=== PATIENT | male | born 1975 | race Caucasian/White ===

== ENCOUNTER 2022-12-14 21:30 | Inpatient (IN) | payer OTHER ==
[2022-12-14 22:33] VITALS: BMI 23.0
[2022-12-14] MEDS ORDERED: NALOXONE HCL 0.4 MG/ML VIAL IM PRN (22:45)
[2022-12-14] MEDS ORDERED: MAG HYDROX/AL HYDROX/SIMETH 30 ML UNIT-DOSE CUP PO PRN (22:45)
[2022-12-14] MEDS ORDERED: DICYCLOMINE HCL 10 MG CAPSULE PO PRN (22:45)
[2022-12-14] MEDS ORDERED: IBUPROFEN 600 MG TABLET (FP) PO PRN (22:45)
[2022-12-14] MEDS ORDERED: ACETAMINOPHEN 325 MG TABLET (FP) PO PRN (22:45)
[2022-12-14] MEDS ORDERED: IBUPROFEN 400 MG TABLET (FP) PO PRN (22:45)
[2022-12-14] MEDS ORDERED: NALOXONE HCL (KLOXXADO) 8 MG SPRAY NS PRN (22:45)
[2022-12-14] MEDS ORDERED: LOPERAMIDE HCL 2 MG CAPSULE PO PRN (22:45)
[2022-12-14] MEDS ORDERED: BENZOCAINE/MENTHOL (CHLORASEPTIC ) LOZENGE MM PRN (22:45)
[2022-12-14] MEDS ORDERED: ONDANSETRON *ODT* 4 MG TABLET SL PRN (22:45)
[2022-12-14] MEDS ORDERED: BENZONATATE 200 MG CAPSULE PO PRN (22:45)
[2022-12-14] MEDS ORDERED: guaiFENesin 600 MG TABLET.ER (FP) PO PRN (22:45)
[2022-12-14] MEDS ORDERED: MAGNESIUM HYDROX 2400MG/30ML ORAL SUSPENSION 30 ML CUP PO PRN (22:45)
[2022-12-14] MEDS ORDERED: BISMUTH SUBSALICYLATE 524 MG/30 ML PO PRN (22:45)
[2022-12-14] MEDS ORDERED: POLYETHYLENE GLYCOL (HEALTHYLAX) 3350 17 GM PACKET PO PRN (22:45)
[2022-12-14] MEDS ORDERED: LORazepam 2 MG/ML SDV VIAL IM ONE (22:46)
[2022-12-15] MEDS: chlordiazePOXIDE HCL 25 MG CAPSULE PO SCH ×4 (05:25→22:11)
[2022-12-15] MEDS: chlordiazePOXIDE HCL 25 MG CAPSULE PO PRN ×2 (07:38→12:25)
[2022-12-15] MEDS: PRENATAL VITAMINS W/ FOLIC ACID TABLET (FP) PO SCH (10:13)
[2022-12-15] MEDS: PANTOPRAZOLE 20 MG TABLET PO SCH (10:14)
[2022-12-15 11:49] LABS: POTASSIUM 3.8 mmol/L (3.5-5.1)
[2022-12-15 11:53] LABS: HEMOGLOBIN 14.1 GM/dL (11.7-16.9); MCH 32.2 pg (25.7-33.7); MCHC 35.2 g/dl (32.0-35.9); MEAN CELL VOLUME 91.6 fl (80-96); PLATELET COUNT 243 10^3/uL (134-434); RBC 4.37 M/mm3 (4.00-5.60); RDW 14.6 % (11.9-15.9); WHITE BLOOD COUNT 3.6 K/mm3 (4.0-10.0)
[2022-12-15 11:57] LABS: ALBUMIN 3.4 g/dl (3.4-5.0); BLOOD UREA NITROGEN 6.9 mg/dL (7-18); CALCIUM 8.4 mg/dL (8.5-10.1)
[2022-12-15 11:58] LABS: BILIRUBIN,TOTAL 0.6 mg/dL (0.2-1); TOT PROT 6.9 g/dl (6.4-8.2)
[2022-12-15 12:00] LABS: CREATININE 0.7 mg/dL (0.55-1.3)
[2022-12-15 14:29] LABS: URINE APPEARANCE CLEAR; URINE BILIRUBIN NEGATIVE (NEGATIVE); URINE COLOR DK YELLOW; URINE GLUCOSE (UA) NEGATIVE (NEGATIVE); URINE KETONE NEGATIVE (NEGATIVE); URINE LEUK ESTERASE NEGATIVE (NEGATIVE); URINE NITRITE NEGATIVE (NEGATIVE); URINE PROTEIN TRACE (NEGATIVE); URINE UROBILINOGEN 0.2 mg/dL (0.2-1.0)
[2022-12-15] MEDS: MELATONIN 5 MG TABLETS PO SCH (22:10)
[2022-12-15] MEDS: THIAMINE HCL 100 MG TABLET (FP) PO SCH (22:10)
[2022-12-16] MEDS: chlordiazePOXIDE HCL 25 MG CAPSULE PO SCH ×4 (06:59→22:07)
[2022-12-16] MEDS: chlordiazePOXIDE HCL 25 MG CAPSULE PO PRN (10:55)
[2022-12-16] MEDS: PANTOPRAZOLE 20 MG TABLET PO SCH (10:55)
[2022-12-16] MEDS: PRENATAL VITAMINS W/ FOLIC ACID TABLET (FP) PO SCH (10:55)
[2022-12-16] MEDS: MELATONIN 5 MG TABLETS PO SCH (22:07)
[2022-12-16] MEDS: THIAMINE HCL 100 MG TABLET (FP) PO SCH (22:07)
[2022-12-16] MEDS: hydrOXYzine PAMOATE 25 MG CAPSULE (FP) PO PRN (22:07)
[2022-12-17] MEDS ORDERED: chlordiazePOXIDE HCL 10 MG CAPSULE PO PRN
[2022-12-17] MEDS: chlordiazePOXIDE HCL 10 MG CAPSULE PO SCH ×4 (05:54→22:13)
[2022-12-17] MEDS: PANTOPRAZOLE 20 MG TABLET PO SCH (10:41)
[2022-12-17] MEDS: PRENATAL VITAMINS W/ FOLIC ACID TABLET (FP) PO SCH (10:41)
[2022-12-17] MEDS: THIAMINE HCL 100 MG TABLET (FP) PO SCH (22:14)
[2022-12-17] MEDS: MELATONIN 5 MG TABLETS PO SCH (22:14)
[2022-12-18] MEDS: chlordiazePOXIDE HCL 10 MG CAPSULE PO SCH ×2 (05:51→17:29)
[2022-12-18] MEDS: PRENATAL VITAMINS W/ FOLIC ACID TABLET (FP) PO SCH (10:24)
[2022-12-18] MEDS: PANTOPRAZOLE 20 MG TABLET PO SCH (10:24)
[2022-12-18] MEDS: hydrOXYzine PAMOATE 25 MG CAPSULE (FP) PO PRN ×2 (13:52→22:11)
[2022-12-18] MEDS: MELATONIN 5 MG TABLETS PO SCH (22:10)
[2022-12-18] MEDS: THIAMINE HCL 100 MG TABLET (FP) PO SCH (22:10)
[2022-12-19] MEDS: chlordiazePOXIDE HCL 10 MG CAPSULE PO ONE ×2 (05:57→06:17)
[2022-12-19 06:46] VITALS: RESP 16
[2022-12-19 08:43] VITALS: BP 112/68; PULSE 82; TEMP 98.2
[2022-12-19] MEDS: hydrOXYzine PAMOATE 25 MG CAPSULE (FP) PO PRN (09:53)
[2022-12-19] MEDS: PANTOPRAZOLE 20 MG TABLET PO SCH (09:54)
[2022-12-19] MEDS: PRENATAL VITAMINS W/ FOLIC ACID TABLET (FP) PO SCH (09:54)
== END 2022-12-19 11:21 | disposition other institution (70) | DRG 775 ==
LOC: YASAS 21:30 → Y3N 12-15 06:27
PROVIDERS: ADMIT Allergy & Immunology; ATTEND Surgery
PROC: HZ2ZZZZ Detoxification Services for Substance Abuse Treatment (ICD-10-PCS; principal; 2022-12-15)
DX: F10.230 Alcohol dependence with withdrawal, uncomplicated (principal); F19.24 Other psychoactive substance dependence with psychoactive substance-induced mood disorder; K21.9 Gastro-esophageal reflux disease without esophagitis; R74.01 Elevation of levels of liver transaminase levels; R74.8 Abnormal levels of other serum enzymes; Z87.891 Personal history of nicotine dependence; Z28.310 Unvaccinated for COVID-19; Z28.9 Immunization not carried out for unspecified reason
CPT/HCPCS: 36415; 80053; 81003; 85027; 86780; C9803-CS; U0003; U0005

== ENCOUNTER 2022-12-19 11:25 | Inpatient (IN) | payer OTHER ==
[2022-12-19] MEDS ORDERED: NALOXONE HCL (KLOXXADO) 8 MG SPRAY NS PRN (14:13)
[2022-12-19] MEDS ORDERED: IBUPROFEN 400 MG TABLET (FP) PO PRN (14:13)
[2022-12-19] MEDS ORDERED: BENZONATATE 200 MG CAPSULE PO PRN (14:13)
[2022-12-19] MEDS ORDERED: COLLOIDAL OATMEAL 1 BAR EACH TP PRN (14:13)
[2022-12-19] MEDS ORDERED: NALOXONE HCL 0.4 MG/ML VIAL IVPUSH PRN (14:13)
[2022-12-19] MEDS ORDERED: BENZOCAINE/MENTHOL (CHLORASEPTIC ) LOZENGE MM PRN (14:13)
[2022-12-19] MEDS ORDERED: MAGNESIUM HYDROX 2400MG/30ML ORAL SUSPENSION 30 ML CUP PO PRN (14:13)
[2022-12-19] MEDS ORDERED: NICOTINE 10 MG CARTRIDGE (INHALER) IH PRN (14:13)
[2022-12-19] MEDS ORDERED: AMMONIUM LACTATE 12% LOTION 225 GM BOTTLE TP PRN (14:13)
[2022-12-19] MEDS ORDERED: IBUPROFEN 600 MG TABLET (FP) PO PRN (14:13)
[2022-12-19] MEDS ORDERED: MAG HYDROX/AL HYDROX/SIMETH 30 ML UNIT-DOSE CUP PO PRN (14:13)
[2022-12-19] MEDS ORDERED: guaiFENesin 600 MG TABLET.ER (FP) PO PRN (14:13)
[2022-12-19] MEDS ORDERED: POLYETHYLENE GLYCOL (HEALTHYLAX) 3350 17 GM PACKET PO PRN (14:13)
[2022-12-19] MEDS ORDERED: ACETAMINOPHEN 325 MG TABLET (FP) PO PRN (14:13)
[2022-12-19] MEDS ORDERED: LOPERAMIDE HCL 2 MG CAPSULE PO PRN (14:13)
[2022-12-19] MEDS: MELATONIN 5 MG TABLETS PO SCH (21:27)
[2022-12-19] MEDS: THIAMINE HCL 100 MG TABLET (FP) PO SCH (21:27)
[2022-12-20] MEDS: PRENATAL VITAMINS W/ FOLIC ACID TABLET (FP) PO SCH (10:27)
[2022-12-20 11:44] LABS: INR 0.97 (0.83-1.09); PROTHROMBIN TIME (PATIENT) 11.2 SEC (9.7-13.0)
[2022-12-20] MEDS: hydrOXYzine PAMOATE 25 MG CAPSULE (FP) PO PRN (20:41)
[2022-12-20] MEDS: MELATONIN 5 MG TABLETS PO SCH (21:03)
[2022-12-20] MEDS: THIAMINE HCL 100 MG TABLET (FP) PO SCH (21:03)
[2022-12-20] MEDS: METHOCARBAMOL 500 MG TABLET PO PRN (22:48)
[2022-12-21] MEDS ORDERED: HYDROCORTISONE 1% TOPICAL CREAM 30 GM TUBE TP PRN (08:54)
[2022-12-21] MEDS: PRENATAL VITAMINS W/ FOLIC ACID TABLET (FP) PO SCH (10:29)
[2022-12-21] MEDS: MELATONIN 5 MG TABLETS PO SCH (21:02)
[2022-12-21] MEDS: hydrOXYzine PAMOATE 25 MG CAPSULE (FP) PO PRN (21:02)
[2022-12-21] MEDS: THIAMINE HCL 100 MG TABLET (FP) PO SCH (21:02)
[2022-12-21] MEDS: METHOCARBAMOL 500 MG TABLET PO PRN (21:02)
[2022-12-22] MEDS: PRENATAL VITAMINS W/ FOLIC ACID TABLET (FP) PO SCH (09:45)
[2022-12-22] MEDS: THIAMINE HCL 100 MG TABLET (FP) PO SCH (21:04)
[2022-12-22] MEDS: METHOCARBAMOL 500 MG TABLET PO PRN (21:04)
[2022-12-22] MEDS: hydrOXYzine PAMOATE 25 MG CAPSULE (FP) PO PRN (21:04)
[2022-12-22] MEDS: MELATONIN 5 MG TABLETS PO SCH (21:04)
[2022-12-23] MEDS: PRENATAL VITAMINS W/ FOLIC ACID TABLET (FP) PO SCH (10:02)
[2022-12-23] MEDS: MELATONIN 5 MG TABLETS PO SCH (21:05)
[2022-12-23] MEDS: THIAMINE HCL 100 MG TABLET (FP) PO SCH (21:05)
[2022-12-23] MEDS: hydrOXYzine PAMOATE 25 MG CAPSULE (FP) PO PRN (21:06)
[2022-12-24] MEDS: PRENATAL VITAMINS W/ FOLIC ACID TABLET (FP) PO SCH (10:05)
[2022-12-24] MEDS: THIAMINE HCL 100 MG TABLET (FP) PO SCH (21:25)
[2022-12-24] MEDS: METHOCARBAMOL 500 MG TABLET PO PRN (21:25)
[2022-12-24] MEDS: MELATONIN 5 MG TABLETS PO SCH (21:25)
[2022-12-24] MEDS: hydrOXYzine PAMOATE 25 MG CAPSULE (FP) PO PRN (21:25)
[2022-12-25] MEDS: PRENATAL VITAMINS W/ FOLIC ACID TABLET (FP) PO SCH (10:23)
[2022-12-25] MEDS: hydrOXYzine PAMOATE 50 MG CAPSULE (FP) PO PRN ×3 (12:17→21:32)
[2022-12-25] MEDS: SUVOREXANT 10 MG TABLET PO PRN (21:32)
[2022-12-25] MEDS: THIAMINE HCL 100 MG TABLET (FP) PO SCH (21:32)
[2022-12-26] MEDS: PRENATAL VITAMINS W/ FOLIC ACID TABLET (FP) PO SCH (10:11)
[2022-12-26] MEDS: hydrOXYzine PAMOATE 50 MG CAPSULE (FP) PO PRN ×3 (10:12→18:33)
[2022-12-26] MEDS: THIAMINE HCL 100 MG TABLET (FP) PO SCH (21:27)
[2022-12-26] MEDS: SUVOREXANT 10 MG TABLET PO PRN (21:27)
[2022-12-27] MEDS: hydrOXYzine PAMOATE 50 MG CAPSULE (FP) PO PRN ×4 (06:35→18:59)
[2022-12-27] MEDS: PRENATAL VITAMINS W/ FOLIC ACID TABLET (FP) PO SCH (09:29)
[2022-12-27] MEDS: THIAMINE HCL 100 MG TABLET (FP) PO SCH (21:30)
[2022-12-27] MEDS: SUVOREXANT 10 MG TABLET PO PRN (21:30)
[2022-12-28] MEDS: PRENATAL VITAMINS W/ FOLIC ACID TABLET (FP) PO SCH (10:21)
[2022-12-28] MEDS: hydrOXYzine PAMOATE 50 MG CAPSULE (FP) PO PRN ×3 (10:33→18:55)
[2022-12-28] MEDS: THIAMINE HCL 100 MG TABLET (FP) PO SCH (21:01)
[2022-12-28] MEDS: SUVOREXANT 10 MG TABLET PO PRN (21:01)
[2022-12-29] MEDS: PRENATAL VITAMINS W/ FOLIC ACID TABLET (FP) PO SCH (10:19)
[2022-12-29] MEDS: hydrOXYzine PAMOATE 50 MG CAPSULE (FP) PO PRN ×3 (10:20→21:02)
[2022-12-29 11:57] LABS: POTASSIUM 4.3 mmol/L (3.5-5.1)
[2022-12-29 12:01] LABS: ALBUMIN 3.9 g/dl (3.4-5.0)
[2022-12-29 12:02] LABS: BLOOD UREA NITROGEN 17.1 mg/dL (7-18); CALCIUM 9.6 mg/dL (8.5-10.1)
[2022-12-29 12:05] LABS: CREATININE 0.9 mg/dL (0.55-1.3)
[2022-12-29 12:06] LABS: BILIRUBIN,TOTAL 0.6 mg/dL (0.2-1); TOT PROT 7.2 g/dl (6.4-8.2)
[2022-12-29] MEDS: traZODone HCL 50 MG TABLET (FP) PO SCH (21:01)
[2022-12-29] MEDS: THIAMINE HCL 100 MG TABLET (FP) PO SCH (21:01)
[2022-12-29] MEDS: busPIRone HCL 10 MG TABLET (FP) PO SCH (21:01)
[2022-12-30] MEDS: PRENATAL VITAMINS W/ FOLIC ACID TABLET (FP) PO SCH (10:26)
[2022-12-30] MEDS: busPIRone HCL 10 MG TABLET (FP) PO SCH ×2 (10:27→21:29)
[2022-12-30] MEDS: hydrOXYzine PAMOATE 50 MG CAPSULE (FP) PO PRN ×3 (10:27→19:00)
[2022-12-30] MEDS: THIAMINE HCL 100 MG TABLET (FP) PO SCH (21:28)
[2022-12-30] MEDS: traZODone HCL 50 MG TABLET (FP) PO SCH (21:29)
[2022-12-31 07:11] VITALS: RESP 18
[2022-12-31] MEDS: PRENATAL VITAMINS W/ FOLIC ACID TABLET (FP) PO SCH (09:45)
[2022-12-31] MEDS: hydrOXYzine PAMOATE 50 MG CAPSULE (FP) PO PRN ×3 (09:46→18:38)
[2022-12-31] MEDS: busPIRone HCL 10 MG TABLET (FP) PO SCH ×2 (09:46→21:27)
[2022-12-31] MEDS: traZODone HCL 50 MG TABLET (FP) PO SCH (21:27)
[2022-12-31] MEDS: THIAMINE HCL 100 MG TABLET (FP) PO SCH (21:27)
[2023-01-01] MEDS: hydrOXYzine PAMOATE 50 MG CAPSULE (FP) PO PRN ×3 (10:27→21:40)
[2023-01-01] MEDS: busPIRone HCL 10 MG TABLET (FP) PO SCH ×2 (10:27→21:39)
[2023-01-01] MEDS: PRENATAL VITAMINS W/ FOLIC ACID TABLET (FP) PO SCH (10:27)
[2023-01-01] MEDS: traZODone HCL 50 MG TABLET (FP) PO SCH (21:39)
[2023-01-01] MEDS: THIAMINE HCL 100 MG TABLET (FP) PO SCH (21:39)
[2023-01-02 07:35] VITALS: BP 113/66; PULSE 82; TEMP 97.1
[2023-01-02] MEDS: busPIRone HCL 10 MG TABLET (FP) PO SCH (09:36)
[2023-01-02] MEDS: PRENATAL VITAMINS W/ FOLIC ACID TABLET (FP) PO SCH (09:36)
[2023-01-02] MEDS: hydrOXYzine PAMOATE 50 MG CAPSULE (FP) PO PRN (09:37)
== END 2023-01-02 09:58 | disposition home or self-care (01) | DRG 772 ==
LOC: YASAS 11:25 → Y3W 11:26
PROVIDERS: ADMIT Allergy & Immunology; ATTEND Psychiatry & Neurology Pain Medicine
PROC: HZ42ZZZ Group Counseling for Substance Abuse Treatment, Cognitive-Behavioral (ICD-10-PCS; principal; 2022-12-19)
DX: F10.20 Alcohol dependence, uncomplicated (principal); F10.282 Alcohol dependence with alcohol-induced sleep disorder; F10.280 Alcohol dependence with alcohol-induced anxiety disorder; F19.24 Other psychoactive substance dependence with psychoactive substance-induced mood disorder; K21.9 Gastro-esophageal reflux disease without esophagitis; L73.1 Pseudofolliculitis barbae; R74.01 Elevation of levels of liver transaminase levels; Z86.2 Personal history of diseases of the blood and blood-forming organs and certain disorders involving the immune mechanism; Z87.891 Personal history of nicotine dependence
CPT/HCPCS: 36415; 80053; 82962; 85610; 86803

== ENCOUNTER 2024-02-07 23:27 | Inpatient (IN) | payer OTHER ==
[2024-02-07 23:56] VITALS: BMI 25.8
[2024-02-08] MEDS ORDERED: MAG HYDROX/AL HYDROX/SIMETH 30 ML UNIT-DOSE CUP PO PRN (00:09)
[2024-02-08] MEDS ORDERED: guaiFENesin 600 MG TABLET.ER (FP) PO PRN (00:09)
[2024-02-08] MEDS ORDERED: NALOXONE HCL 0.4 MG/ML VIAL IM PRN (00:09)
[2024-02-08] MEDS ORDERED: LOPERAMIDE HCL 2 MG CAPSULE PO PRN (00:09)
[2024-02-08] MEDS ORDERED: BENZONATATE 200 MG CAPSULE PO PRN (00:09)
[2024-02-08] MEDS ORDERED: NALOXONE (NARCAN) HCL 4 MG/0.1 ML SPRAY NS PRN (00:09)
[2024-02-08] MEDS ORDERED: DICYCLOMINE HCL 10 MG CAPSULE PO PRN (00:09)
[2024-02-08] MEDS ORDERED: MAGNESIUM HYDROX 2400MG/30ML ORAL SUSPENSION 30 ML CUP PO PRN (00:09)
[2024-02-08] MEDS ORDERED: IBUPROFEN 400 MG TABLET (FP) PO PRN (00:09)
[2024-02-08] MEDS ORDERED: POLYETHYLENE GLYCOL (HEALTHYLAX) 3350 17 GM PACKET PO PRN (00:09)
[2024-02-08] MEDS ORDERED: BENZOCAINE/MENTHOL (CHLORASEPTIC ) LOZENGE MM PRN (00:09)
[2024-02-08] MEDS ORDERED: BISMUTH SUBSALICYLATE 524 MG/30 ML PO PRN (00:09)
[2024-02-08] MEDS ORDERED: FAMOTIDINE 20 MG TABLET PO ONE (00:14)
[2024-02-08] MEDS: LORazepam 2 MG/ML SDV VIAL IM ONE (02:10)
[2024-02-08] MEDS: FAMOTIDINE 20 MG TABLET PO ONE (03:10)
[2024-02-08] MEDS: chlordiazePOXIDE HCL 25 MG CAPSULE PO SCH (05:28)
[2024-02-08] MEDS: PRENATAL VITAMINS W/ FOLIC ACID TABLET (FP) PO SCH (10:11)
[2024-02-08] MEDS: hydrOXYzine PAMOATE 25 MG CAPSULE (FP) PO PRN (10:15)
[2024-02-08] MEDS: PANTOPRAZOLE 20 MG TABLET PO SCH (11:24)
[2024-02-08 11:36] LABS: HEMATOCRIT 46.6 % (35.4-49); HEMOGLOBIN 15.7 GM/dL (11.7-16.9); MCH 30.4 pg (25.7-33.7); MCHC 33.8 g/dl (32.0-35.9); MEAN CELL VOLUME 90.1 fl (80-96); MEAN PLT VOLUME 8.1 fl (7.5-11.1); PLATELET COUNT 218 10^3/uL (134-434); RBC 5.17 M/mm3 (4.00-5.60); RDW 14.6 % (11.9-15.9); WHITE BLOOD COUNT 6.7 K/mm3 (4.0-10.0)
[2024-02-08 12:26] LABS: BLOOD UREA NITROGEN 12.4 mg/dL (7-18); CALCIUM 8.5 mg/dL (8.5-10.1)
[2024-02-08 12:28] LABS: ALBUMIN 3.9 g/dl (3.4-5.0)
[2024-02-08 12:29] LABS: CREATININE 0.7 mg/dL (0.55-1.3)
[2024-02-08 12:31] LABS: BILIRUBIN,TOTAL 0.8 mg/dL (0.2-1); TOT PROT 6.8 g/dl (6.4-8.2)
[2024-02-08] MEDS: chlordiazePOXIDE HCL 25 MG CAPSULE PO PRN (12:39)
[2024-02-08] MEDS: GABAPENTIN 300 MG CAPSULE PO SCH (13:50)
[2024-02-08] MEDS: ACETAMINOPHEN 325 MG TABLET (FP) PO PRN (18:01)
[2024-02-08] MEDS: MELATONIN 5 MG TABLETS PO SCH (22:41)
[2024-02-08] MEDS: traZODone HCL 50 MG TABLET (FP) PO SCH (22:41)
[2024-02-08] MEDS: THIAMINE 100 MG TABLET PO SCH (22:41)
[2024-02-09] MEDS: chlordiazePOXIDE HCL 25 MG CAPSULE PO SCH (05:45)
[2024-02-09] MEDS: ONDANSETRON *ODT* 4 MG TABLET SL PRN (10:24)
[2024-02-09] MEDS: IBUPROFEN 600 MG TABLET (FP) PO PRN (18:57)
[2024-02-10] MEDS ORDERED: chlordiazePOXIDE HCL 10 MG CAPSULE PO PRN
[2024-02-10] MEDS: chlordiazePOXIDE HCL 10 MG CAPSULE PO SCH (05:55)
[2024-02-11] MEDS: chlordiazePOXIDE HCL 10 MG CAPSULE PO SCH (05:34)
[2024-02-12] MEDS: chlordiazePOXIDE HCL 10 MG CAPSULE PO ONE (05:55)
[2024-02-12 06:17] VITALS: PULSE 78
[2024-02-12 09:43] VITALS: BP 130/82; RESP 18; TEMP 98.3
== END 2024-02-12 13:35 | disposition home or self-care (01) | DRG 775 ==
LOC: YASAS 23:27 → Y3N 02-08 01:59
PROVIDERS: ADMIT Allergy & Immunology; ATTEND Surgery
PROC: HZ2ZZZZ Detoxification Services for Substance Abuse Treatment (ICD-10-PCS; principal; 2024-02-08)
DX: F10.230 Alcohol dependence with withdrawal, uncomplicated (principal); F19.24 Other psychoactive substance dependence with psychoactive substance-induced mood disorder; F41.9 Anxiety disorder, unspecified; G47.00 Insomnia, unspecified; K21.9 Gastro-esophageal reflux disease without esophagitis; Z87.891 Personal history of nicotine dependence; Z86.69 Personal history of other diseases of the nervous system and sense organs; Z91.199 Patient's noncompliance with other medical treatment and regimen due to unspecified reason; Z56.0 Unemployment, unspecified; Z59.00 Homelessness unspecified
CPT/HCPCS: 36415; 80053; 80305; 80307; 85027; 86780; 93005; 93010; Q0162